=== PATIENT | female | born 1945 | race Caucasian/White ===

== ENCOUNTER 2024-01-03 10:40 | Emergency (ER) | payer OTHER, SELFPAY ==
[2024-01-03 10:43] VITALS: BP 126/58
[2024-01-03] MEDS: TYLENOL 650 MG PO (12:40)
--- NOTE | 2024-01-03 12:41 | ED.GENMED ---
History of Present Illness
General
Chief Complaint: Head Injury
Source: patient
Exam Limitations: none
Time Seen by Provider: 01/03/24 11:55
Nursing documentation reviewed up to this point in time: agreed with
Travel History
Have you had any contact with someone who has COVID-19?: No
Do you have any symptoms of coronavirus? Fever > 100 degrees, chills, cough, shortness of breath, sore throat, loss of taste or smell, muscle aches, or headache?: No
History of Present Illness
History of Present Illness:
78-year-old female with history of bilateral knee replacement, due for a right hip replacement says that she was folding a flat sheet and got tangled up in the sheets and ultimately fell striking her head on the corner of a nightstand in her bedroom
at 930 this morning. Patient did also land on her knee on the left side. Because of her ongoing right hip arthritis she had difficulty getting herself up. She was able to eventually crawl to another room to call for help. She called her daughter
who came and brought her to the emergency department. Patient says that she felt a little lightheaded during all of that but once she settled down and knew that her daughter was coming for help that resolved. She does not have significant headache
but does feel some soreness where she has a laceration on her forehead. She also has bruising under her eye but denies any vision changes. She has no neck pain. She started to have slight bruising to her left knee and she has chronic pain in her
right hip. Patient's tetanus shot is up-to-date. She is not anticoagulated
Past History
Past History
ED Past Medical History: HTN, Hypercholesterolemia and Other (Rectal polyps, appendectomy, nephrectomy, right knee replacement, left nephrectomy, right rotator cuff repair, cataracts)
ED Past Surgical History: Appendectomy, Gynecological and Orthopedic
Social History
Tobacco: Non-smoker
Alcohol: Occasional
Drug: None
Personal:
Living: with family
Employment: Retired
Family History
Family History: Other (Colon cancer)
Review of Systems
Review of Systems
Allergies reviewed?: Yes
All Other Systems: Not applicable
Phy Exam
Physical Exam
Physical Exam:
GENERAL: Alert , in no apparent distress
HEAD: Irregular shaped laceration measuring 4 cm down to the galea on her left forehead above her eyebrow, no active bleeding, no tenderness to the orbit
NECK: no midline tenderness, active ROM intact, no paraspinal muscle tenderness;
EYE: pupils equal and reactive, EOMs intact
There are some ecchymosis inferior orbital region without any tenderness to the orbital floor.
ENT: o/p clr, mmm. no hemotympanum
CARDIAC: Regular rate and rhythm, no edema
LUNGS: Clear breath sounds bilaterally, no acute respiratory distress, no wheezes/rales/rhonchi
ABDOMEN: Soft, without focal tenderness, no r/g, no cvat
NEUROLOGICAL: Alert and oriented, no focal neuro deficits, CN intact, 5/5 strength, sensation intact
SKIN: Warm and dry, laceration as above
Bruising to the left anterior knee, superficial laceration to the right index finger measuring 0.25 cm, bruising and abrasion on the left dorsal hand at the MCP joint of the third finger
MUSCULOSKELETAL: No edema, well perfused.
Full range of motion of hands bilaterally, she does have limited painful flexion of the right hip which she says is chronic due to her arthritis, she has preserved flexion of her left knee with mild discomfort
PSYCH: Normal and appropriate interaction.
Course
Orders/Labs/Results
Orders:
Orders
01/03/24 11:[address] [CT Head W/o Iv Contrast] Urgent
Comment:
Reason For Exam: head injury
01/03/24 12:34
Acetaminophen [Tylenol] 650 mg PO NOW STA
CR Knee - Left 4 Or More View* Urgent
Comment:
Reason For Exam: left knee nava after fall
Hip, Right 2-3 Views [CR Hip - RT w/wo Pel 2-3 Vw*] Urgent
Comment:
Reason For Exam: right hip pain after fall
Include a pelvis x-ray?: Yes
Vital Signs
Initial and Last Documented VS:
Initial Vital Signs
Temp Pulse Resp BP Pulse Ox
98.9 F 69 20 126/58 97
01/03/24 10:43 01/03/24 10:43 01/03/24 10:43 01/03/24 10:43 01/03/24 10:43
Last Documented Vital Signs
Temp Pulse Resp BP Pulse Ox
98.9 F 63 18 122/61 97
01/03/24 10:43 01/03/24 14:22 01/03/24 14:22 01/03/24 14:22 01/03/24 14:22
Procedures
Laceration Closure
Left Forehead:
Status of Wound: clean
Size of Wound in cm: 4
Description of Wound Edges: ragged, flap-well vascularized and macerated
Preparation: cleaned with saline
Anesthesia: 1% Lidocaine with epi
Revision/Debridement: extensive revision
Wound exploration: explored to base- no FB
Type of Closure: layered closure
Skin Closure Material: 6-0 nylon (12) and 5-0 vicryl (3)
Number of sutures: 15
MDM/Problems Addressed
Differential Diagnosis Includes:
Hip fracture, arthritis, head contusion, concussion, skull, intracranial hemorrhage or subdural hematoma
MDM/Problems Addressed:
78-year-old female with mechanical trip and fall hitting her face against the corner of her nightstand causing a stellate laceration to her left forehead down to the galea with no active bleeding, no loss of consciousness, no change in mental
status, no neck pain. She has some ecchymosis underneath her left eye without any orbital tenderness, no eye injury neurologically intact. Her tetanus is up to date. Her head CT was negative other than soft tissue swelling. I repaired the
laceration with 2 layer closure and bleeding was controlled. Bacitracin dressing applied. Patient's having acute worsening of her chronic right hip pain after the fall, x-rays just reveal her severe OA and no fracture, also no knee fractures on
exam. Discharge home, suture removal in 5 to 7 days
*Critical Care Note
Total Time (30-74mins, 75-104mins- exclusive of procedures): Not Applicable
ED Attending Note
-
Portions of this chart may have been created with voice recognition software.� Occasional wrong word or��sound alike� substitutions may have occurred due to the inherent limitations of voice recognition software.
Discharge Plan
Departure
Patient Disposition: Home (Routine Discharge)
Date of Disposition: 01/03/24
Time of Disposition: 14:16
Patient with high blood pressure during this ER visit?: No
Condition: Fair
Covid-19: Not Applicable
Discharge Problem:
Head injury, Laceration, Contusion
Instructions: Head Injury in Adults (DC), Contusion (DC), Laceration Repair With Stitches (DC)
Prescriptions:
No Action
atorvastatin 40 MG tablet
40 mg PO DAILY
metoprolol succinate 50 MG tablet extended release 24 hr
25 mg PO DAILY
sertraline 100 MG tablet
200 mg PO DAILY
aspirin 81 MG tablet,chewable
81 mg PO DAILY
cyanocobalamin (vitamin B-12) 1,000 mcg Tablet
1,000 mcg PO DAILY
acetaminophen [Tylenol Extra Strength] 500 mg Tablet
1,000 mg PO HS
Women's Multiple Vitamins
1 tab PO DAILY
mupirocin 2 % ointment
1 applic intranasal BID Qty: 1 0RF
Referrals:
Jc Durbin MD [Family Provider] -
Activity Restrictions/Additional Instructions:
Your wound was closed with stitches. Keep them clean and dry for the next 24 hours and then you should have them removed by your family doctor in about 5 to 7 days. Clean with mild soap and water, apply Neosporin.
You can use ice off-and-on on your forehead for the swelling. You had some bruising underneath your eye but no signs of fractures. Your CAT scan was normal.
Your x-rays of your knee and hip showed no fractures. You have severe osteoarthritis of your hip as expected
tylenol for pain
return for any concerns.
Interventions
Interventions:
*Risk Screen - Suicide Last Done: 01/03/24 11:50
*General Assessment Last Done: 01/03/24 11:50
*Neglect/Abuse Screening Last Done: 01/03/24 11:50
*ED COVID-19 Vaccine History Last Done: 01/03/24 11:50
*Nursing Disposition Last Done: 01/03/24 14:49
ED- Neurological Assessment Last Done: 01/03/24 11:51
ED-Skin Assessment Last Done: 01/03/24 11:52
Discharge Date and Time
Discharge Date/Time: 01/03/24 14:50
[2024-01-03 14:22] VITALS: BP 122/61
== END 2024-01-03 14:50 | disposition home or self-care (01) ==
LOC: EMR 10:40
PROVIDERS: EMERGENCY PHYSICIAN Emergency Medicine; FAMILY PHYSICIAN Family Medicine
DX: S01.81XA Laceration without foreign body of other part of head, initial encounter (principal); W01.190A Fall on same level from slipping, tripping and stumbling with subsequent striking against furniture, initial encounter; G89.29 Other chronic pain; M16.11 Unilateral primary osteoarthritis, right hip
CPT/HCPCS: 13132; 99284; 70450; 73502; 73564

== ENCOUNTER 2024-01-09 06:23 | Inpatient (IN) | payer OTHER, SELFPAY ==
--- NOTE | 2023-12-07 10:34 | CM ---
Patient is scheduled for an elective R THR on 01/09/24. Spoke with patient's daughter, Julienne, prior to surgery via telephone. Introduced role of Orthopedic Navigator. She reports that patient lives alone in a one story home. There are three steps (2-1)
to enter and one step into the kitchen. She currently functions independently and uses a cane. She also has a rolling walker, rollator, raised toilet seat and hip kit. She has had VN services. PCP is Dr. Jc Durbin.
Discussed orthopedic program and post surgical plans. Reviewed anticipated length of stay and that goal is for patient to return home at discharge. Also reviewed outpatient PT. Patient is in agreement with tentative plan and will go directly to
outpatient PT at [facility]. Patient's daughter, Julienne, will stay with her for 2-3 weeks.
Patient will complete online education.
Plan: Orthopedic Navigator will remain available to assist with the care of patient and will reassess discharge needs after surgery.
[2023-12-21 12:18] VITALS: BMI 28.1
[2023-12-21 13:47] LABS: Hematocrit 43.3 % (37.0-47.0); Hemoglobin 13.6 g/dL (12.0-16.0); Mean Corp Hgb Conc. 31.4 g/dL (33.0-37.0); Mean Corpuscular Hgb 31.3 pg (27.0-31.0); Mean Corpuscular Volume 99.5 fL (81.0-99.0); Mean Platelet Volume 12.3 fL (7.4-10.4); Platelet Count 153 10^3/uL (130-400); Red Blood Cell Count 4.35 10^6/uL (4.20-5.40); Red Cell Dist. Width 13.9 % (11.5-14.5); White Blood Cell Count 5.8 10^3/uL (4.8-10.8)
[2023-12-21 14:01] LABS: ALT (SGPT) 28 U/L (0-35); AST (SGOT) 31 U/L (14-36); Albumin 4.5 g/dl (3.5-5.0); Alkaline Phosphatase 90 U/L (38-126); Blood Urea Nitrogen 20 mg/dl (7-17); Calcium 9.6 mg/dl (8.4-10.2); Carbon Dioxide 31 mmol/L (22-30); Chloride 101 mmol/L (98-107); Estimated Creatinine Clearance 71 ml/min; Glucose 85 mg/dl (70-99); Potassium 4.3 mmol/L (3.5-5.1); Sodium 140 mmol/L (135-145); Total Protein 7.3 g/dl (6.3-8.2); eGFR > 60.00
[2023-12-21 14:27] LABS: Glycohemoglobin (HgbA1c) 5.7 % (4.0-5.6)
[2023-12-21 15:05] VITALS: BMI 28.1
[2024-01-09] VITALS (17 sets, daily range): BP systolic 87–141; BP diastolic 39–91; PULSE 65–73; O2SAT 95–96
[2024-01-09] MEDS: NORMOSOL-R 1000 IV ×2 (07:30→12:58)
[2024-01-09] MEDS: TYLENOL 650 MG PO ×5 (07:42→23:25)
[2024-01-09] MEDS: CELEBREX 200 MG PO (07:42)
[2024-01-09] MEDS: NORCO 5/325 1 TABLET PO (12:53)
[2024-01-09] MEDS: ZOLOFT 200 MG PO (13:46)
[2024-01-09] MEDS: LIPITOR 40 MG PO (13:46)
--- NOTE | 2024-01-09 15:06 | PTCARENOTE ---
Received patient from PACU via bed around 1315 in stable condition. Patient and family oriented to room. Patient denied pain. Right hip dressing c/d/i. Neurovascular check wnl. Left eye laceration with sutures from previous fall prior to this
hospitalization [facility]. Call sinha in reach.
[2024-01-09] MEDS: ANCEF 5 IV (17:16)
[2024-01-09] MEDS: ASPIRIN 325 MG PO (17:16)
[2024-01-09] MEDS: BACTROBAN 2% OINTMENT 1 APPLIC NASAL (20:37)
[2024-01-09] MEDS: TORADOL 10 MG IV (20:38)
[2024-01-09] MEDS: DECADRON 4 MG PO (20:38)
[2024-01-09] MEDS: COLACE 100 MG PO (20:38)
[2024-01-09] MEDS: SENOKOT 17.1999999999999993 MG PO (20:38)
[2024-01-09] MEDS: PEPCID 20 MG PO (22:02)
[2024-01-10] MEDS: ANCEF 5 IV (01:44)
[2024-01-10 03:34] VITALS: BP 129/78
[2024-01-10] MEDS: TYLENOL PO (04:00)
[2024-01-10 06:00] VITALS: BMI 29.0
[2024-01-10 07:58] VITALS: BP 101/47
[2024-01-10] MEDS: CELEBREX 200 MG PO (08:33)
[2024-01-10] MEDS: SENOKOT 17.1999999999999993 MG PO (08:33)
[2024-01-10] MEDS: ZOLOFT 200 MG PO (08:34)
[2024-01-10] MEDS: LIPITOR 40 MG PO (08:34)
[2024-01-10] MEDS: TYLENOL 650 MG PO (08:34)
[2024-01-10] MEDS: ASPIRIN 325 MG PO (08:34)
[2024-01-10] MEDS: COLACE 100 MG PO (08:34)
[2024-01-10] MEDS: DECADRON 4 MG PO (08:34)
[2024-01-10] MEDS: BACTROBAN 2% OINTMENT 1 APPLIC NASAL (08:36)
[2024-01-10] MEDS: TORADOL 10 MG IV (08:36)
--- NOTE | 2024-01-10 08:37 | CM ---
Addendum entered by Barb Naranjo 01/10/24 11:36:
Patient did well in therapy. She and her daughter have no concerns about discharge plans.
Original Note:
Reviewed chart and held rounds with PT, OT and nursing. Patient admitted as planned for elective R THR. Met with patient at bedside. Confirmed information previously obtained for assessment. Also discussed discharge plans. The plan is for patient to
return home at discharge. Her daughter will be staying with her for 2-3 weeks. Patient will go directly to outpatient PT and will go to [facility]. She has an appointment scheduled for Tuesday, 01/10.
Patient has all needed DME except a shower seat. Patient asking about a shower seat; OT to address.
She will use [facility] pharmacy for discharge prescriptions.
Discharge plans were reviewed with patient's daughters on 01/08. Daughter, Julienne, will be present for therapy today.
[2024-01-10 10:01] VITALS: BP 114/47; BP 95/64; PULSE 72; O2SAT 95
--- NOTE | 2024-01-10 10:25 | W.PN.ORTHO ---
Today's Communication / Plan
-
Await PT recs. Pt did well w/ OT this AM.
D/c later today if remaining clinically stable.
Assessment
.
Distal Motor Intact: Yes
Dressing:
Clean, dry and intact.
Assessment:
R hip OA s/p Ez mejia/ Dr Rodney 01/09/24
- s/p b/l TKA, 2008, at an outside facility
DVT prophylaxis - ASA, b/l venous foot pumps
HTN - resumed BB - BPs stable
Head laceration after mechanical fall 01/03/24 - sutures removed by myself this AM
Hyperlipidemia
Non-obstructive coronary artery disease on cardiac cath 2015.
Moderate to severe mitral regurgitation
Mild aortic stenosis
Moderate aortic regurgitation.
Mild to moderate tricuspid regurgitation
Remote migraines
Vertigo
Overactive bladder
Anxiety
Depression
Osteopenia
Hearing impairment bilaterally
Prediabetes, A1c 5.7
Remote history of tobacco abuse
Plan
.
Surgery / Date: Ez mejia/ Dr Rodney 01/09/24
DVT Prophylaxis: Aspirin
Activity:
Out of bed.
PT/OT
Discharge Plan: Home w/ Outpatient PT
Subjective
.
.:
Patient resting comfortably in her chair this AM.
R hip pain minimal w/ current pain meds.
Denies any new significant complaints.
Eager for potential d/c today.
Vital Signs and Labs
.
Vital Signs and Labs:
Lab Results
12/21/23 12:08
12/21/23 12:08
Temp Pulse Resp BP Pulse Ox
99.5 F 78 16 101/47 96
01/10/24 07:58 01/10/24 07:58 01/10/24 07:58 01/10/24 07:58 01/10/24 07:58
Non-invasive Hgb result: 10.8
Physical Exam
-
HEENT: No pallor, cyanosis, or jaundice. Throat clear.
NECK: Supple. No JVD.
RESPIRATORY: Lungs clear to auscultation.
CVS: S1, S2 normal. RRR.
ABDOMEN: Soft, non-tender. No distension.
EXTREMITIES: Strength equal, no calf pain with palpation/dorsiflexion. Calves soft.
PERFORATOR LOADER: AOx3. No focal deficits. internet security specialist grossly intact
[2024-01-10 10:44] VITALS: BP 110/46
--- NOTE | 2024-01-10 10:56 | W.DS.TRANS ---
DC Summary - Design Editor
-
Discharge Instructions:
Sleep Apnea Risk Low
Discharge Diagnosis/Procedures R hip OA s/p R MINDY w/ Dr Rodney 01/09/24
Diet Regular
Activity As tolerated,With Walker
Driving Restrictions Not until seen by your Dr
Bathing Restrictions OK to Shower
Other Services PT
Wound Care Dressing to be removed 1 week post-surgery.
[place] to be removed at 2 week follow-up
appointment with surgeon's office.
Instructions:
Stand-Alone Forms: Total Hip/Knee Replacement D/C
Changes to Home Medications: Yes
Discharge Medications:
DC Medications w/original date entered in H5
atorvastatin 40 mg tablet 40 mg PO DAILY High cholesterol 02/04/16
sertraline 100 mg tablet 200 mg PO DAILY Depression 02/04/16
Women's Multiple Vitamins 1 tab PO DAILY Supplement 12/14/23
cyanocobalamin (vitamin B-12) 1,000 mcg tablet 1,000 mcg PO DAILY Supplement 12/14/23
mupirocin 2 % topical ointment 1 applic intranasal BID #1 tube 12/21/23
acetaminophen 325 mg tablet 650 mg (2 x 325 mg) PO Q4HPRN PRN mild pain #60 tabs 01/10/24
aspirin 325 mg tablet 325 mg PO DAILY #30 tabs 01/10/24
celecoxib 200 mg capsule 200 mg PO DAILY #14 caps 01/10/24
dexamethasone 4 mg tablet 4 mg PO BID Anti-inflammatory #5 tabs 01/10/24
docusate sodium 100 mg capsule 100 mg PO BID #30 caps 01/10/24
famotidine 20 mg tablet 20 mg PO HS #30 tabs 01/10/24
hydrocodone 5 mg-acetaminophen 325 mg tablet 1 - 2 tab PO Q6H PRN moderate-severe pain #30 tabs 01/10/24
metoprolol succinate 50 mg tablet,extended release 24 hr 25 mg (1/2 x 50 mg) PO DAILY Blood pressure #0 tabs 01/10/24
ondansetron HCl 4 mg tablet 4 mg PO Q6H PRN nausea and vomiting #30 tabs 01/10/24
sennosides 8.6 mg tablet (Senna Laxative) 17.2 mg (2 x 8.6 mg) PO BID #30 tabs 01/10/24
Home Medication Changes
acetaminophen 325 mg tablet 650 mg (2 x 325 mg) PO Q4HPRN PRN mild pain #60 tabs 01/10/24
aspirin 325 mg tablet 325 mg PO DAILY #30 tabs 01/10/24
celecoxib 200 mg capsule 200 mg PO DAILY #14 caps 01/10/24
dexamethasone 4 mg tablet 4 mg PO BID Anti-inflammatory #5 tabs 01/10/24
docusate sodium 100 mg capsule 100 mg PO BID #30 caps 01/10/24
famotidine 20 mg tablet 20 mg PO HS #30 tabs 01/10/24
hydrocodone 5 mg-acetaminophen 325 mg tablet 1 - 2 tab PO Q6H PRN moderate-severe pain #30 tabs 01/10/24
ondansetron HCl 4 mg tablet 4 mg PO Q6H PRN nausea and vomiting #30 tabs 01/10/24
sennosides 8.6 mg tablet (Senna Laxative) 17.2 mg (2 x 8.6 mg) PO BID #30 tabs 01/10/24
Pending Results: No
[2024-01-10 11:29] VITALS: BP 104/54
== END 2024-01-10 11:51 | disposition home or self-care (01) | DRG 470 ==
LOC: 2 SOUTH 06:23
PROVIDERS: ADMITTING PHYSICIAN Specialist; FAMILY PHYSICIAN Family Medicine
PROC: 0SR901A Replacement of Right Hip Joint with Metal Synthetic Substitute, Uncemented, Open Approach (ICD-10-PCS; 2024-01-09)
DX: M16.11 Unilateral primary osteoarthritis, right hip (principal); I10 Essential (primary) hypertension; E78.5 Hyperlipidemia, unspecified; F41.9 Anxiety disorder, unspecified; F32.A Depression, unspecified; W19.XXXD Unspecified fall, subsequent encounter; S01.91XD Laceration without foreign body of unspecified part of head, subsequent encounter; X58.XXXA Exposure to other specified factors, initial encounter
CPT/HCPCS: 36415; 73502; 80053; 83036; 85027; 87070; 97110; 97116; 97162; 97166; 97535; C1713; C1776

== ENCOUNTER → 2024-03-21 11:01 | Outpatient (REF) | payer OTHER, SELFPAY | LOC: RCS 11:01 | PROVIDERS: ATTENDING PHYSICIAN Internal Medicine Cardiovascular Disease; FAMILY PHYSICIAN Family Medicine | DX: I08.0 Rheumatic disorders of both mitral and aortic valves (principal) | CPT/HCPCS: 93306 ==

== ENCOUNTER → 2025-08-16 08:44 | Outpatient (REF) | payer OTHER, SELFPAY | LOC: HWRCS 08:44 | PROVIDERS: ATTENDING PHYSICIAN Internal Medicine Cardiovascular Disease; FAMILY PHYSICIAN Family Medicine | DX: I25.10 Atherosclerotic heart disease of native coronary artery without angina pectoris (principal) | CPT/HCPCS: 78452; 93017; A9500; J2785 ==

== ENCOUNTER → 2025-09-20 10:57 | Outpatient (REF) | payer OTHER, SELFPAY | LOC: RAD 10:57 | PROVIDERS: ATTENDING PHYSICIAN Family Medicine | DX: R06.09 Other forms of dyspnea (principal); R05.2 Subacute cough; I25.10 Atherosclerotic heart disease of native coronary artery without angina pectoris; I08.0 Rheumatic disorders of both mitral and aortic valves | CPT/HCPCS: 71046 ==

== ENCOUNTER → 2025-09-28 08:23 | Outpatient (REF) | payer OTHER, SELFPAY | LOC: RAD 08:23 | PROVIDERS: ATTENDING PHYSICIAN Internal Medicine Critical Care Medicine; FAMILY PHYSICIAN Family Medicine | DX: R91.8 Other nonspecific abnormal finding of lung field (principal) | CPT/HCPCS: 71250 ==

== ENCOUNTER 2025-10-07 06:21 | Day surgery (SDC) | payer OTHER, SELFPAY ==
[2025-09-24 13:47] VITALS: BMI 25.7
--- NOTE | 2025-10-01 08:05 | PTCARENOTE ---
Patients 09/24 PTT-40.9- Pippa @ Dr. Oliveira office notified
[2025-10-07] VITALS (11 sets, daily range): BP systolic 95–121; BP diastolic 44–81; BMI 24.0; BMI 25.7
[2025-10-07] MEDS: NSS 500 IV (08:18)
[2025-10-07] MEDS: VENTOLIN NEBULES 2.5 MG INH (08:34)
== END 2025-10-07 12:26 | disposition home or self-care (01) ==
LOC: SDS 06:21
PROVIDERS: ATTENDING PHYSICIAN Internal Medicine Critical Care Medicine
DX: C34.32 Malignant neoplasm of lower lobe, left bronchus or lung (principal); R91.8 Other nonspecific abnormal finding of lung field; J98.09 Other diseases of bronchus, not elsewhere classified; Z87.891 Personal history of nicotine dependence
CPT/HCPCS: 31629; 31654; 31625; 31628; 31623; 31645; 31624; 31627; 71045; 76000; 81459; 88112; 88173; 88305; 88333; 88341; 88342; 94640; C1713; C1887